=== PATIENT | female | born 1945 | race Caucasian/White ===

== ENCOUNTER 2020-11-27 08:09 | Outpatient (REF) | payer MEDICARE, SELFPAY ==
--- NOTE | ~2020-11-27 | MM_ITS ---
EXAMINATION: MM SCREENING DIGITAL BREAST TOMOSYNTHESIS, BILATERAL CLINICAL INFORMATION: Screening. Asymptomatic. The lifetime risk of breast cancer based on the Tyrer-Cuzick Model is 2.2%. COMPARISON: Mammography: August 01, 2018 and studies dating back to June 07, 2012 TECHNIQUE: Digital breast tomosynthesis is performed in both the craniocaudal and mediolateral oblique views along with computer-aided detection (CAD). Synthesized 2D images are generated from the tomosynthesis. FINDINGS: There are scattered areas of fibroglandular density (ACR BI-RADS breast composition Category b). There are no significant masses, abnormal calcifications, or other abnormalities. MM/MM tomosynthesis screening BI IMPRESSION: There are no significant changes from prior study. ASSESSMENT: BI-RADS 1: Negative RECOMMENDATION: Routine annual mammography screening. This patient's information was entered into a reminder system with a target due date for their next mammogram.
== END 2020-11-27 08:10 | disposition home or self-care (01) ==
LOC: HO.MAMMO 08:09
PROVIDERS: Visit Provider Internal Medicine
DX: Z12.31 Encounter for screening mammogram for malignant neoplasm of breast (principal)
CPT/HCPCS: 77063; 77067

== ENCOUNTER 2022-01-22 10:32 | Outpatient (REF) | payer MEDICARE, SELFPAY ==
--- NOTE | ~2022-01-22 | MM_ITS ---
EXAMINATION: MM SCREENING DIGITAL BREAST TOMOSYNTHESIS, BILATERAL CLINICAL INFORMATION: Screening. Asymptomatic. The lifetime risk of breast cancer based on the Tyrer-Cuzick Model is 5%. COMPARISON: Mammography: 11/27/2020, 08/01/2018, 07/26/2016 TECHNIQUE: Digital breast tomosynthesis is performed in both the craniocaudal and mediolateral oblique views along with computer-aided detection (CAD). Synthesized 2D images are generated from the tomosynthesis. Additional bilateral MLO views are provided. FINDINGS: There are scattered areas of fibroglandular density (ACR BI-RADS breast composition Category b). There are no significant masses, abnormal calcifications, or other abnormalities. Parenchymal pattern is similar to prior studies. There is no developing density or architectural abnormality. The axilla and skin contours are unremarkable. No significant changes. MM/MM tomosynthesis screening BI IMPRESSION: No mammographic evidence of malignancy. ASSESSMENT: BI-RADS 1: Negative RECOMMENDATION: Routine annual mammography screening. This patient's information was entered into a reminder system with a target due date for their next mammogram.
== END 2022-01-22 10:33 | disposition home or self-care (01) ==
LOC: HO.MAMMO 10:32
PROVIDERS: PCP Internal Medicine; Visit Provider Internal Medicine
DX: Z12.31 Encounter for screening mammogram for malignant neoplasm of breast (principal)
CPT/HCPCS: 77063; 77067

== ENCOUNTER 2023-02-01 07:37 | Outpatient (REF) | payer MEDICARE, SELFPAY ==
--- NOTE | ~2023-02-01 | MM_ITS ---
EXAMINATION: MM SCREENING DIGITAL BREAST TOMOSYNTHESIS, BILATERAL CLINICAL INFORMATION: Screening. Asymptomatic. The lifetime risk of breast cancer based on the Tyrer-Cuzick Model is 9%. COMPARISON: Mammography: 01/22/2022, 11/27/2020, 08/01/2018 TECHNIQUE: Digital breast tomosynthesis is performed in both the craniocaudal and mediolateral oblique views along with computer-aided detection (CAD). Synthesized 2D images are generated from the tomosynthesis. FINDINGS: There are scattered areas of fibroglandular density (ACR BI-RADS breast composition Category b). There are no significant masses, abnormal calcifications, or other abnormalities. Parenchymal pattern is similar to prior exams. There are scattered minor stable bilateral asymmetries. No developing density or architectural abnormality. The axilla and skin contours are unremarkable. MM/MM tomosynthesis screening BI IMPRESSION: No significant changes from prior studies. No mammographic evidence of malignancy. ASSESSMENT: BI-RADS 2: Benign RECOMMENDATION: Routine annual mammography screening. This patient's information was entered into a reminder system with a target due date for their next mammogram.
== END 2023-02-01 07:38 | disposition home or self-care (01) ==
LOC: HO.MAMMO 07:37
PROVIDERS: Visit Provider Internal Medicine
DX: Z12.31 Encounter for screening mammogram for malignant neoplasm of breast (principal)
CPT/HCPCS: 77063; 77067

== ENCOUNTER 2024-02-07 07:41 | Outpatient (REF) | payer MEDICARE, SELFPAY ==
--- NOTE | ~2024-02-07 | MM_ITS ---
EXAMINATION: MM SCREENING DIGITAL BREAST TOMOSYNTHESIS, BILATERAL CLINICAL INFORMATION: Screening. Asymptomatic. Daughter with breast cancer age 54. COMPARISON: Mammography: 02/01/2023, 01/22/2022, 11/27/2020, 08/01/2018 TECHNIQUE: Digital breast tomosynthesis is performed in both the craniocaudal and mediolateral oblique views along with computer-aided detection (CAD). Synthesized 2D images are generated from the tomosynthesis. FINDINGS: There are scattered areas of fibroglandular density (ACR BI-RADS breast composition Category b). There are bilateral vascular calcifications noted. There are no suspicious masses, suspicious grouped calcifications, or areas of architectural distortion in either breast. The parenchymal pattern is stable from prior exams. There are no skin or axillary abnormalities. MM/MM tomosynthesis screening BI IMPRESSION: No mammographic evidence of malignancy. ASSESSMENT: BI-RADS BI-RADS 2 - Benign Findings RECOMMENDATION: Routine annual mammography screening. 1 year F/U This examination should not preclude the clinical evaluation of a suspicious palpable abnormality. This patient's information was entered into a reminder system with a target due date for their next mammogram.
== END 2024-02-07 07:42 | disposition home or self-care (01) ==
LOC: HO.MAMMO 07:41
PROVIDERS: PCP Internal Medicine; Visit Provider Internal Medicine
DX: Z12.31 Encounter for screening mammogram for malignant neoplasm of breast (principal)
CPT/HCPCS: 77063; 77067

== ENCOUNTER → 2024-02-07 07:45 | Outpatient (BNV) | payer MEDICARE, SELFPAY | PROVIDERS: PCP Internal Medicine; Visit Provider Radiology Diagnostic Radiology | DX: Z12.31 Encounter for screening mammogram for malignant neoplasm of breast (principal) | CPT/HCPCS: 77063; 77067 ==

== ENCOUNTER 2025-03-26 08:00 | Outpatient (REF) | payer MEDICARE, SELFPAY ==
--- NOTE | ~2025-03-26 | MM_ITS ---
EXAMINATION: MM SCREENING DIGITAL BREAST TOMOSYNTHESIS, BILATERAL CLINICAL INFORMATION: Screening. Asymptomatic. COMPARISON: Mammography: Comparison is made with available priors TECHNIQUE: Digital breast mammography with tomosynthesis is performed in both the craniocaudal and mediolateral oblique views along with computer-aided detection (CAD). FINDINGS: There are scattered areas of fibroglandular density (ACR BI-RADS breast composition Category b). Bilateral scattered asymmetries are stable. There are no significant masses, abnormal calcifications, or other abnormalities. MM/MM tomosynthesis screening BI IMPRESSION: No mammographic evidence of malignancy. ASSESSMENT: BI-RADS BI-RADS 2 - Benign Findings RECOMMENDATION: Routine annual mammography screening. 1 year F/U This examination should not preclude the clinical evaluation of a suspicious palpable abnormality. This patient's information was entered into a reminder system with a target due date for their next mammogram. Electronically signed by: Lea Ramos DO 03/29/2025 05:33 PM EDT
--- OUTSIDE RECORDS SUMMARY | 2025-03-26 08:05 | XMS_ITS | Clinical Summary ---
Author Organization [facility] Address [address] [place] [address] Phone Care Team Providers Care Bioinformatics Team Member Name Role Phone Kvng Jacobo MD Primary Care Provider [phone] Allergies Active Allergy Reactions Criticality Noted Date Comments Penicillin G Unknown 09/15/2024 Medications metoprolol tartrate (LOPRESSOR) 25 mg tablet Take 1 tablet (25 mg total) by mouth 2 (two) times a day. Active furosemide (LASIX) 40 mg tablet Take 1 tablet (40 mg total) by mouth 1 (one) time each day. 7 Active potassium bicarbonate (EFFER-K) 10 mEq effervescent tablet Take 1 tablet (10 mEq total) by mouth 1 (one) time each day. Active dilTIAZem CD (CARDIZEM CD) 240 mg 24 hr capsule Take 1 capsule (240 mg total) by mouth 1 (one) time each day. 30 each 11 4 09/16/20 25 Active apixaban (ELIQUIS) 5 mg tablet Take 5 mg by mouth 2 times daily. Active omeprazole (PriLOSEC) [address] capsule Take 40 mg by mouth daily. Active cholecalciferol (VITAMIN D-3) 125 mcg (5,000 unit) capsule Take 125 mcg by mouth once a week. Active MULTIVITAMIN ORAL Take 1 capsule by mouth daily. Active Active Problems Problem Noted Date Diagnosed Date Spontaneous dissection of coronary artery 2024 Overview (11/02/2024): - NSTEMI 09/2024 at [facility] - Cardiac catheterization at [facility] showed normal left main, luminal irregularities to the LAD, left circumflex and RCA with 90% stenosis in OM 2, with LVEDP 6. This was a small caliber vessel but appears to have dissection in its entire course indicating SCAD. He was managed medically given the small caliber vessel and prior significant GI bleed. Recommendation was made for metoprolol for future recurrence prevention. - Echocardiogram obtained at [facility] shows LVEF normal 55 to 60%, no wall motion abnormalities, mild biatrial dilatation, with mild TR and PASP 30 mmHg. Assessment & Plan (11/02/2024 12:13 PM EST): The patient has not had any recurrence of her chest discomfort. We discussed SCAD together today. She is tolerating beta-rebeca but does have some fatigue. She was not anemic during her hospitalization and has not had any recent bleeding issues. Will update her TSH with upcoming labs from her PCP. We discussed taking good care of herself in light of her 's significant diagnosis. She will try to be more active and do more things just for her. In ongoing evaluation for her SCAD, will obtain renal artery duplex to evaluate for fibromuscular dysplasia. Should this be positive, will refer to vascular surgery. I will notify her of the results when they are available to me Benign essential hypertension 04/22/2022 Assessment & Plan (11/02/2024 12:10 PM EST): Blood pressure well-controlled on current regimen of beta-rebeca, calcium channel rebeca and diuretic. Continue Atrial fibrillation (CMS/HCC V24, CMS/HCC V28) 1 11/04/2015 Overview (11/02/2024): [id number] score of 4 Rate control strategy with beta-rebeca and calcium channel rebeca History of GI bleed, currently tolerating apixaban Declined watchman Assessment & Plan (11/02/2024 12:09 PM EST): The patient remains in atrial fibrillation with adequate rate control. She does state that she feels as though she goes in and out of it, but it seems by EKG she is mostly persistent. Regardless though, she is anticoagulated and she has not had any bleeding issues. Remains with rate control strategy with diltiazem and metoprolol. She declined watchman when offered previously. We reviewed the procedure briefly today and discussed how we offered the patient to have had significant bleeding in the past. Since she is stable at this time, would be reasonable to reconsider. She will do so. If she chooses to go through the procedure, will reestablish with electrophysiology to picking tech where they left off. GERD (gastroesophageal reflux disease) 6 Resolved Problems Problem Noted Date Diagnosed Date Resolved Date NSTEMI (non-ST elevated myoc ardial infarction) ([facility] V24, [facility] V28) 09/15/2024 0 11/02/2024 Hypertension 09/03/2016 11/02/2024 Surgical History Surgery Date Site/Laterality Comments CARDIAC CATHETERIZATION DONE ON 09/17/2024 AT [facility] INDICATIONS:NSTEMI COLONOSCOPY 10/03/2014 - 10/02/2015 nl CHOLECYSTECTOMY 10/03/2008 - 10/02/2009 GASTRIC BYPASS ESOPHAGOGASTRODUODENOSCOPY 10/15/2016 Vitaliy - surgical changes. anastamoic ulcer ERCP 03/21/2017 Dr. Varela - stents removed from hepatic-duodenostomy Medical History Medical History Date Comments Diabetes ([facility] V24, [facility] V28) DX:Diabetes (HCC) GERD (gastroesophageal reflux disease) DX:GERD (gastroesophageal reflux disease) IFG (impaired fasting glucose) D X:IFG (impaired fasting glucose) Fatty liver DX:Fatty liver Atrial fibrillation ([facility] V24, [facility] V28) NSTEMI (non-ST elevated myoc ardial infarction) ([facility] V24, [facility] V28) 09/2024 Spontaneous dissection of coronary artery 4 Family History Medical History Relation Name Comments 45 Father Heart attack Father pacemaker Mother Colon cancer Neg Hx Colon polyps Neg Hx Relation Name Status Comments Father (Age 45) CAD Mother Social History Tobacco Use Types Packs/Day Years Used Date Smoking Tobacco: Never Smokeless Tobacco: Never Tobacco Cessation:Counseling Given: Not Answered Alcohol Use Standard Drinks/Week Comments Yes 0 (1 standard drink = 0.6 oz pur e alcohol) rarely Comments Unknown Sex and Gender Information Value Date Recorded Sex Assigned at Not on file Legal Sex Female 7:18 PM EST Gender Identity Not on file Sexual Orientation Not on file Obstetrics History Last Filed Vital Signs Vital Sign Reading Time Taken Comments Blood Pressure 122/74 11/02/2024 11:16 AM EST Pulse 65 11/02/2024 11:16 AM EST Temperature 36.6 C (97.9 F) 09/15/2024 12:02 PM EST Respiratory Rate 15 09/15/2024 3:02 PM EST Oxygen Saturation 99% 11/02/2024 11:16 AM EST Inhaled Oxygen Concentration - - Weight 89 kg (196 lb 3.2 oz) 11/02/2024 11:16 AM EST Height 157.5 cm (5' 2 ) 11/02/2024 11:16 AM EST Body Mass Index 35.89 11/02/2024 11:16 AM EST Plan of Treatment Health Maintenance Due Date Last Done Comments DTaP,Tdap,and Td Vaccines (1 - Tdap) 1966 Hepatitis A Vaccines (1 of 2 - Risk 2-dose series) 1966 Pneumococcal Vaccine: 50+ Years (1 of 1 - PCV) 1997 Zoster Vaccines (1 of 2) 1997 Hepatitis B Vaccines (1 of 3 - Risk 3-dose series) 2007 RSV Immunization Adult Patients (1 - 1-dose 75+ series) 2022 Cholesterol Screening (Lipid Panel) 09/11/2022 Depression Screening 09/11/2022 Falls Risk Assessment 09/11/2022 Hepatitis C Screening 09/11/2022 Osteoporosis Screening (Bone Density Screening) 09/11/2022 Social Influencers of Health Screening 09/11/2022 Medicare Annual Wellness Visit 08/24/2023 08/24/2022 COVID-19 Vaccine (2023-2 5 season) 2024 10/10/2021, 03/01/2021, 02/01/2021 Influenza Vaccine (Season Ended) 2025 Hypertension/CHF/CAD Annual BMP Blood Test 09/15/2025 09/15/2024 HIB Vaccines Aged Out No longer eligi ble based on patient's age to complete this topic HPV Vaccines Aged Out No longer eligi ble based on patient's age to complete this topic IPV Vaccines Aged Out No longer eligi ble based on patient's age to complete this topic MMR Vaccines Aged Out No longer eligi ble based on patient's age to complete this topic Meningococcal ACWY Vaccine Aged Out N o longer eligible based on patient's age to complete this topic Meningococcal B Vaccine Aged Out No l onger eligible based on patient's age to complete this topic RSV Immunization Patients Under 20 months Aged Out No longer eligible b ased on patient's age to complete this topic Varicella Vaccines Aged Out No longer eligible based on patient's age to complete this topic Procedures Procedure Name Priority Date/Time Associated Diagnosis Comments COMPREHENSIVE METABOLIC PANEL STAT 09/15/2024 10:40 AM EST from Last 3 Months or Most Recently Relevant to Health Maintenance Results * (ABNORMAL) Comprehensive metabolic panel (09/15/2024 10:40 AM EST) Sodium 141 133 - 145 mmol/L LAB CHEMISTRY METHOD 09/15/2024 11:39 AM [facility] Potassium 4.0 3.5 - 5.5 mmol/L LAB CHEMISTRY METHOD 09/15/2024 11:39 AM [facility] Chloride 110 96 - 110 mmol/L LAB CHEMISTRY METHOD 09/15/2024 11:39 AM [facility] CO2 26 21 - 32 mmol/L LAB CHEMISTRY METHOD 09/15/2024 11:39 AM [facility] Anion Gap 5 3 - 11 LAB CHEMISTRY METHOD 09/15/2024 11:39 AM [facility] Glucose 220(H) 70 - 100 mg/dL LAB CHEMISTRY METHOD 09/15/2024 11:39 AM [facility] BUN 9 5 - 25 mg/dL LAB CHEMISTRY METHOD 09/15/2024 11:39 AM [facility] Creatinine 0.70 0.50 - 1.10 mg/dL LAB CHEMISTRY METHOD 09/15/2024 11:39 AM [facility] eGFR 89 >=60 mL/min/1. 73m2 LAB CHEMISTRY METHOD 09/15/2024 11:39 AM [facility] Comment:Calculation based on the Chronic Kidney Disease Epidemiology Collaboration (CKD-EPI) equation refit without adjustment for race. BUN/Creatinine Ratio 12.9 LAB CHEMISTRY METHOD 09/15/2024 11:39 AM [facility] Calcium 9.2 8.5 - 10.5 mg/dL LAB CHEMISTRY METHOD 09/15/2024 11:39 AM [facility] AST (SGOT) 22 10 - 42 unit/L LAB CHEMISTRY METHOD 09/15/2024 11:39 AM [facility] ALT (SGPT) 21 10 - 60 unit/L LAB CHEMISTRY METHOD 09/15/2024 11:39 AM [facility] Alkaline Phosphatase 90 42 - 121 unit/L LAB CHEMISTRY METHOD 09/15/2024 11:39 AM [facility] Total Protein 6.2 6.0 - 8.0 g/dL LAB CHEMISTRY METHOD 09/15/2024 11:39 AM [facility] Albumin 3.7 3.2 - 5.0 g/dL LAB CHEMISTRY METHOD 09/15/2024 11:39 AM [facility] Total Bilirubin 0.7 0.0 - 1.4 mg/dL LAB CHEMISTRY METHOD 09/15/2024 11:39 AM [facility] Blood Venous blood specimen / Unknown Venipuncture / Unknown 09/15/2024 10:40 AM EST 09/15/2024 11:01 AM EST us Thor Howard MD LAB BLOOD ORDERABLES Final Resu lt [facility] [address] [place] [address], from Last 3 Months or Most Recently Relevant to Health Maintenance Insurance MEDICARE [employer] Advance Directives * Full Code - Default (Latest Code Status on File) Date Activated Date Inactivated Comments 09/15/2024 2:11 PM 09/15/2024 10:09 PM This is o rder is used when code status has not been discussed with the patient, or code status is otherwise unknown/unconfirmed To update the patient's code status, place a code status order. Do not modify or discontinue any currently active code status orders. Care Teams Bioinformatics Team Member Relationship Specialty Start Date End Date Kvng Jacobo MD [address] [place] [id number] PCP - General Internal Medicine 09/15/24
== END 2025-03-26 08:01 | disposition home or self-care (01) ==
LOC: HO.MAMMO 08:00
PROVIDERS: PCP Internal Medicine; Visit Provider Internal Medicine
DX: Z12.31 Encounter for screening mammogram for malignant neoplasm of breast (principal)
CPT/HCPCS: 77063; 77067

== ENCOUNTER → 2025-03-26 08:00 | Outpatient (BNV) | payer MEDICARE, SELFPAY | PROVIDERS: PCP Internal Medicine; Visit Provider Internal Medicine | DX: Z12.31 Encounter for screening mammogram for malignant neoplasm of breast (principal) | CPT/HCPCS: 77063; 77067 ==